=== PATIENT | male | born 1985 | race Caucasian/White ===

== ENCOUNTER 2018-03-26 21:06 | Emergency (ER) | payer OTHER, SELFPAY ==
[2018-03-26] MEDS ORDERED: BUPIVACAINE 0.5% PF 10 ML VIAL ONE (22:09)
[2018-03-26] MEDS ORDERED: TETANUS & DIPHTHERIA TOX,ADULT 0.5 ML VIAL ONE (22:09)
[2018-03-26] MEDS ORDERED: LIDOCAINE 1% W/EPI 1:100,000 MDV 50 ML VIAL ONE (22:11)
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
--- NOTE | 2018-03-26 23:25 | ER ---
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 Transition of care: patient was not received from another setting of care. Onset of symptoms was March 26, 2018. Risk Assessment: Do you want to hurt yourself or someone else? Patient reports no desire to harm self or others. Initial Sepsis Screen:. Care prior to arrival: None. 21:20 Method Of Arrival: Wheelchair aj 21:20 Acuity: JHOAN 4 aj 22:20 Initial Sepsis Screen: Does the patient meet any 2 criteria? No. Patient's initial ao sepsis screen is negative. Does the patient have a suspected source of infection? Yes: Skin breakdown/wound. Triage Assessment: 21:22 General: Appears in no apparent distress. comfortable, Behavior is calm, cooperative, aj appropriate for age. Pain: Complains of pain in lateral aspect of right calf. Neuro: Level of Consciousness is awake, alert, obeys commands, Oriented to person, place, time, situation, Appropriate for age. Respiratory: Airway is patent Respiratory effort is even, unlabored, Respiratory pattern is regular, symmetrical. Derm: Skin is intact, is healthy with good turgor, Skin is pink, warm \T\ dry. normal. Injury Description: Puncture sustained to lateral aspect of right calf. Historical: - Allergies: 21:22 Sulfa (Sulfonamide Antibiotics); aj - Home Meds: 21:22 None [Active]; aj - PMHx: 21:22 None; aj - PSHx: 21:22 None; aj - Immunization history:: Last tetanus immunization: unknown. - Social history:: Smoking status: Patient uses tobacco products, smokes one-half pack cigarettes per day. - Ebola Screening: : Patient negative for fever greater than or equal to 101.5 degrees Fahrenheit, and additional compatible Ebola Virus Disease symptoms Patient denies exposure to infectious person Patient denies travel to an Ebola-affected area in the 21 days before illness onset No symptoms or risks identified at this time. Screenin:20 Abuse screen: Denies threats or abuse. Denies injuries from another. Nutritional ao screening: No deficits noted. Tuberculosis screening: No symptoms or risk factors identified. Fall Risk None identified. Assessment: 22:00 General: Appears in no apparent distress. uncomfortable, Behavior is calm, cooperative, ao appropriate for age, agitated. Pain: Complains of pain in right leg. Neuro: Level of Consciousness is awake, alert, obeys commands, Oriented to person, place, time, situation, Appropriate for age Concrete Paving Machine Operator are equal bilaterally Speech is normal, Facial symmetry appears normal. Cardiovascular: Capillary refill < 3 seconds Patient's skin is warm and dry. Respiratory: Airway is patent Respiratory effort is even, unlabored, Respiratory pattern is regular, symmetrical. GI: Abdomen is non-distended. : No signs and/or symptoms were reported regarding the genitourinary system. EENT: No signs and/or symptoms were reported regarding the EENT system. Derm: Skin Fish hook in the right calf area. Bleeding has stopped. Musculoskeletal: Patient is able to move his right toes. Reports no lost of sensation. Injury Description: Patient was fishing and cat himself with the hook on his right calf. 23:05 Reassessment: Patient appears in no apparent distress at this time. Patient and/or ao family updated on plan of care and expected duration. Pain level reassessed. Patient is alert, oriented x 3, equal unlabored respirations, skin warm/dry/pink. Unsuccessful tried to get the hook out. Still working on getting the hook out. Vital Signs: 21:22 BP 124 / 72; Pulse 55; Resp 16; Temp 98.2; Pulse Ox 98% on R/A; Weight 83.01 kg; Height aj 5 ft. 10 in. (177.80 cm); 23:05 BP 120 / 74; Pulse 77; Resp 18; Pulse Ox 100% on R/A; ao 21:22 Body Mass Index 26.26 (83.01 kg, 177.80 cm) aj ED Course: 21:14 Patient arrived in ED. es 21:21 Triage completed. aj 21:22 Arm band placed on left wrist. Patient placed in waiting room, Patient notified of wait aj time. 21:56 Stevie Tiwari NP is PHCP. pm1 21:56 Ronny Pimentel MD is Attending Physician. pm1 22:05 Luis Blake, RN is Primary Nurse. ao 22:21 Patient has correct armband on for positive identification. Bed in low position. Call ao light in reach. 23:02 XRAY Tib Fib RIGHT In Process Unspecified. EDMS 03/27 00:18 No provider procedures requiring assistance completed. Patient did not have IV access ao during this emergency room visit. 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 Exp: ao 06/24/2020. Lot #: [id number]. } Route: IM; Site: right deltoid; 03/27 00:17 Follow up: Response: No adverse reaction ao 03/26 23:00 Drug: Marcaine (0.5 %) 10 ml Volume: 10 ml; Route: Infiltration; ao 23:00 Drug: Lidocaine (1 %) 5 ml Volume: 5 ml; Route: Infiltration; ao 03/27 00:07 Drug: Ancef 1 grams Route: IM; Site: affected area; ao 00:14 Follow up: Response: No adverse reaction ao 00:07 Drug: Doxycycline 100 mg Route: PO; ao 00:14 Follow up: Response: No adverse reaction ao 00:13 Not Given (Patient Refused): [place] 5 mg-325 mg 1 tabs PO once ao Outcome: 03/26 23:24 Discharge ordered by . pm1 03/27 00:18 Discharged to home ambulatory. ao Condition: stable Discharge instructions given to patient, Instructed on discharge instructions, follow up and referral plans. Demonstrated understanding of instructions, follow-up care, medications, Prescriptions given X 3. 00:18 Patient left the ED. ao Signatures: Dispatcher [employer] Nirali Villarreal RN RN aj Salyer, Edna es Ortiz, Alex, RN RN ao Marinas, Patrick, NP TUTORING MANAGER pm1 Corrections: (The following items were deleted from the chart) 03/26 21:23 21:22 Immunization history: Adult Immunizations up to date, chandan hawley
[2018-03-26] MEDS ORDERED: CEFAZOLIN SODIUM 1 GM/VIAL ONE ×2 (23:44→23:50)
[2018-03-26] MEDS ORDERED: DOXYCYCLINE 100 MG CAP PO ONE (23:45)
[2018-03-26] MEDS ORDERED: WATER FOR INJ,STERILE 10 ML ONE (23:46)
--- NOTE | 2018-03-27 10:27 | RAD REPORT ---
EXAM DESCRIPTION: RAD - Tib Fib Right - 03/26/2018 11:02 pm CLINICAL HISTORY: Foreign body COMPARISON: None. FINDINGS: No fracture is identified. No acute bone findings seen. A large metal fish hook is present in the soft tissues lateral midportion of the right leg. No other air or foreign body soft tissue fi nding. Bone is uninvolved.
== END 2018-03-27 00:18 | disposition home or self-care (01) ==
LOC: ER 21:06
DX: S81.841A Puncture wound with foreign body, right lower leg, initial encounter (principal); F17.210 Nicotine dependence, cigarettes, uncomplicated; W45.8XXA Other foreign body or object entering through skin, initial encounter; W22.8XXA Striking against or struck by other objects, initial encounter; Y93.16 Activity, rowing, canoeing, kayaking, rafting and tubing; Y92.832 Beach as the place of occurrence of the external cause; Y99.8 Other external cause status; Z88.2 Allergy status to sulfonamides; Z23 Encounter for immunization
CPT/HCPCS: 90714; 96372; 99283; J0690